=== PATIENT | male | born 1935 | race Caucasian/White ===

== ENCOUNTER 2019-10-09 17:04 | Inpatient (IN) | payer OTHER, MEDICAID ==
[~2019-10-09] VITALS: Ht 160 cm; Wt 62.1 kg
[~2019-10-09 17:04] MED LIST: ASPIR LOW81 MG; COR3 PO; LIPITOR40 MG PO; TYLENOL PO; VIAGRA
[2019-10-09 18:55] LABS: PLATELET COUNT 390 x10^3mcL (130-400)
[2019-10-09 18:57] LABS: BASOPHIL % 0 % (0-2); RED CELL DISTRIBUTION WIDTH 17.2 % (11.5-14.5)
[2019-10-09 19:35] LABS: CALCIUM 8.5 mg/dL (8.5-10.1); CARBON DIOXIDE 27.7 mmol/L (21-32); CHLORIDE SERUM 104 mmol/L (98-107); CREATININE SERUM 1.1 mg/dL (0.7-1.3); GLUCOSE SERUM 159 mg/dL (74-106); POTASSIUM SERUM 3.5 mmol/L (3.5-5.1); SODIUM SERUM 145 mmol/L (136-145)
[2019-10-09 19:41] LABS: ALBUMIN 3.8 g/dL (3.4-5.0); ALKALINE PHOSPHATASE 108 U/L (46-116); ALT/SGPT 22 U/L (16-63); AST/SGOT 25 U/L (15-37); BILIRUBIN TOTAL 0.6 mg/dL (0.20-1.00); LIPASE 103 IU/L (73-393); TOTAL PROTEIN, SERUM 7.8 g/dL (6.4-8.2)
[2019-10-09 23:12] VITALS: BP 119/66
[2019-10-09 23:49] LABS: CHOLESTEROL/HDL RATIO 3.9; MAGNESIUM 2.4 mg/dL (1.8-2.4); PHOSPHOROUS 4.1 mg/dL (2.5-4.9)
[2019-10-09 23:55] LABS: T3 TOTAL 1.07 ng/mL
[2019-10-09 23:58] LABS: FREE T4 1.41 ng/dL (0.76-1.46); FREE THYROXINE INDEX 3.9 ug/dL (1.4-4.5); T4(THYROXINE) 11.9 ug/dL (4.7-13.3)
[2019-10-10 05:42] VITALS: BP 94/47
[2019-10-10 07:10] LABS: IRON 39 ug/dL (65-170); TOTAL IRON BINDING CAPACITY 296 ug/dL (250-450)
[2019-10-10 07:17] LABS: CALCIUM 7.8 mg/dL (8.5-10.1); CARBON DIOXIDE 27.3 mmol/L (21-32); CHLORIDE SERUM 110 mmol/L (98-107); GLUCOSE SERUM 87 mg/dL (74-106); MAGNESIUM 2.3 mg/dL (1.8-2.4); POTASSIUM SERUM 3.8 mmol/L (3.5-5.1); SODIUM SERUM 146 mmol/L (136-145)
[2019-10-10 07:22] VITALS: BP 120/61
[2019-10-10 11:23] LABS: BASOPHIL % 0.6 % (0-2); PLATELET COUNT 278 x10^3mcL (130-400)
[2019-10-10 11:27] LABS: RED CELL DISTRIBUTION WIDTH 17.2 % (11.5-14.5)
[2019-10-10 13:00] VITALS: BP 123/51
[2019-10-10 16:41] VITALS: BP 116/50
[2019-10-10 19:58] VITALS: BP 140/87
[2019-10-11 05:17] VITALS: BP 146/98
[2019-10-11 06:11] LABS: PLATELET COUNT 326 x10^3mcL (130-400)
[2019-10-11 06:27] LABS: BASOPHIL % 0 % (0-2); RED CELL DISTRIBUTION WIDTH 16.8 % (11.5-14.5)
[2019-10-11 06:53] LABS: CALCIUM 8.1 mg/dL (8.5-10.1); CARBON DIOXIDE 27.6 mmol/L (21-32); CHLORIDE SERUM 108 mmol/L (98-107); CREATININE SERUM 0.9 mg/dL (0.7-1.3); GLUCOSE SERUM 100 mg/dL (74-106); MAGNESIUM 2.3 mg/dL (1.8-2.4); PHOSPHOROUS 4.4 mg/dL (2.5-4.9); POTASSIUM SERUM 3.6 mmol/L (3.5-5.1); SODIUM SERUM 145 mmol/L (136-145)
[2019-10-11 08:07] VITALS: BP 129/64
[2019-10-11 12:24] VITALS: BP 138/70
[2019-10-11 16:26] VITALS: BP 132/68
[2019-10-11 20:39] VITALS: BP 140/77
[2019-10-12 04:38] VITALS: BP 137/78
[2019-10-12 06:33] LABS: BASOPHIL % 0.1 % (0-2); PLATELET COUNT 338 x10^3mcL (130-400)
[2019-10-12 07:09] LABS: RED CELL DISTRIBUTION WIDTH 17.5 % (11.5-14.5)
[2019-10-12 07:23] LABS: CALCIUM 8.5 mg/dL (8.5-10.1); CARBON DIOXIDE 31.2 mmol/L (21-32); CHLORIDE SERUM 109 mmol/L (98-107); CREATININE SERUM 0.9 mg/dL (0.7-1.3); GLUCOSE SERUM 120 mg/dL (74-106); MAGNESIUM 2.7 mg/dL (1.8-2.4); PHOSPHOROUS 3.2 mg/dL (2.5-4.9); POTASSIUM SERUM 4.4 mmol/L (3.5-5.1); SODIUM SERUM 147 mmol/L (136-145)
[2019-10-12 08:42] VITALS: BP 139/71
[2019-10-12 12:29] VITALS: BP 121/62
[2019-10-12 20:21] VITALS: BP 123/66
[2019-10-13] VITALS (8 sets, daily range): BP systolic 106–139; BP diastolic 55–65
[2019-10-13 07:14] LABS: CALCIUM 7.8 mg/dL (8.5-10.1); CARBON DIOXIDE 31.7 mmol/L (21-32); CHLORIDE SERUM 112 mmol/L (98-107); GLUCOSE SERUM 148 mg/dL (74-106); MAGNESIUM 2.2 mg/dL (1.8-2.4); PHOSPHOROUS 2.9 mg/dL (2.5-4.9); SODIUM SERUM 150 mmol/L (136-145)
[2019-10-13 07:41] LABS: POTASSIUM SERUM 2.9 mmol/L (3.5-5.1)
[2019-10-13 08:30] LABS: BASOPHIL % 0.1 % (0-2); PLATELET COUNT 271 x10^3mcL (130-400)
[2019-10-13 08:42] LABS: RED CELL DISTRIBUTION WIDTH 17.6 % (11.5-14.5)
[2019-10-14 05:35] VITALS: BP 114/66
[2019-10-14 06:27] LABS: CALCIUM 7.9 mg/dL (8.5-10.1); CARBON DIOXIDE 24.2 mmol/L (21-32); CHLORIDE SERUM 112 mmol/L (98-107); CREATININE SERUM 1.3 mg/dL (0.7-1.3); GLUCOSE SERUM 164 mg/dL (74-106); MAGNESIUM 1.9 mg/dL (1.8-2.4); PHOSPHOROUS 1.6 mg/dL (2.5-4.9); SODIUM SERUM 147 mmol/L (136-145)
[2019-10-14 06:31] LABS: POTASSIUM SERUM 2.2 mmol/L (3.5-5.1)
[2019-10-14 08:08] VITALS: BP 93/61
[2019-10-14 08:42] LABS: PLATELET COUNT 283 x10^3mcL (130-400)
[2019-10-14 08:44] LABS: RED CELL DISTRIBUTION WIDTH 17.7 % (11.5-14.5)
[2019-10-14 12:09] VITALS: BP 117/56
[2019-10-14 13:11] LABS: BAND NEUTROPHIL 45 % (0-10); METAMYELOCTE 2 % (0-2); MONOCYTE 3 % (0-7); SEGMENTED NEUTROPHILS 47 % (37-75); rbc morphology (normal/abnorm) NORMAL (NORMAL)
[2019-10-14 15:44] VITALS: BP 90/72
[2019-10-14 16:02] LABS: CALCIUM 7.8 mg/dL (8.5-10.1); CARBON DIOXIDE 25.5 mmol/L (21-32); CHLORIDE SERUM 112 mmol/L (98-107); CREATININE SERUM 1.7 mg/dL (0.7-1.3); GLUCOSE SERUM 119 mg/dL (74-106); POTASSIUM SERUM 3.6 mmol/L (3.5-5.1); SODIUM SERUM 146 mmol/L (136-145)
[2019-10-14 18:40] VITALS: BP 99/61
[2019-10-14 19:29] VITALS: BP 104/58
[2019-10-15 00:53] LABS: UA SPECIFIC GRAVITY 1.025 (1.005-1.035); microscopic required? YES; urine erythrocyte 3+ (NEGATIVE)
[2019-10-15 05:20] VITALS: BP 116/62
[2019-10-15 06:45] LABS: CALCIUM 8.4 mg/dL (8.5-10.1); CARBON DIOXIDE 25.8 mmol/L (21-32); CHLORIDE SERUM 113 mmol/L (98-107); CREATININE SERUM 1.5 mg/dL (0.7-1.3); GLUCOSE SERUM 141 mg/dL (74-106); MAGNESIUM 2.3 mg/dL (1.8-2.4); SODIUM SERUM 148 mmol/L (136-145)
[2019-10-15 06:46] LABS: BASOPHIL % 0.2 % (0-2); PLATELET COUNT 256 x10^3mcL (130-400)
[2019-10-15 07:01] LABS: POTASSIUM SERUM 2.6 mmol/L (3.5-5.1)
[2019-10-15 07:03] LABS: RED CELL DISTRIBUTION WIDTH 17.8 % (11.5-14.5)
[2019-10-15 08:00] VITALS: BP 96/66
[2019-10-15 12:34] VITALS: BP 119/65
[2019-10-15 16:49] VITALS: BP 136/60
[2019-10-15 19:31] VITALS: BP 141/76
[2019-10-15 19:55] LABS: CARBON DIOXIDE 24.4 mmol/L (21-32); CHLORIDE SERUM 109 mmol/L (98-107); CREATININE SERUM 1.1 mg/dL (0.7-1.3); GLUCOSE SERUM 140 mg/dL (74-106); SODIUM SERUM 142 mmol/L (136-145)
[2019-10-15 19:58] LABS: POTASSIUM SERUM 2.4 mmol/L (3.5-5.1)
[2019-10-16 05:30] VITALS: BP 109/64
[2019-10-16 06:38] LABS: PLATELET COUNT 223 x10^3mcL (130-400)
[2019-10-16 06:41] LABS: RED CELL DISTRIBUTION WIDTH 17.7 % (11.5-14.5)
[2019-10-16 07:09] LABS: CARBON DIOXIDE 22.8 mmol/L (21-32); CHLORIDE SERUM 107 mmol/L (98-107); GLUCOSE SERUM 128 mg/dL (74-106); MAGNESIUM 2.1 mg/dL (1.8-2.4); PHOSPHOROUS 1.6 mg/dL (2.5-4.9); SODIUM SERUM 141 mmol/L (136-145)
[2019-10-16 07:11] LABS: POTASSIUM SERUM 2.2 mmol/L (3.5-5.1)
[2019-10-16 08:40] VITALS: BP 137/71
[2019-10-16 09:04] LABS: BAND NEUTROPHIL 38 % (0-10); BASOPHIL 0 % (0-2); MONOCYTE 5 % (0-7); SEGMENTED NEUTROPHILS 47 % (37-75)
[2019-10-16 09:05] LABS: burr cell (echinocyte) 1+; ovalocyte/elliptocyte 1+; rbc morphology (normal/abnorm) ABNORMAL (NORMAL)
[2019-10-16 09:06] LABS: PLATELET MORPHOLOGY LARGE PLATELET SEEN
[2019-10-16 12:42] VITALS: BP 156/68
[2019-10-16 15:27] LABS: CALCIUM 8.6 mg/dL (8.5-10.1); CARBON DIOXIDE 21.7 mmol/L (21-32); CHLORIDE SERUM 106 mmol/L (98-107); GLUCOSE SERUM 172 mg/dL (74-106); SODIUM SERUM 139 mmol/L (136-145)
[2019-10-16 15:33] LABS: BASOPHIL % 0.1 % (0-2); PLATELET COUNT 272 x10^3mcL (130-400)
[2019-10-16 15:35] LABS: POTASSIUM SERUM 2.8 mmol/L (3.5-5.1)
[2019-10-16 15:36] LABS: RED CELL DISTRIBUTION WIDTH 18.2 % (11.5-14.5)
[2019-10-16 16:45] VITALS: BP 121/60
[2019-10-16 21:00] VITALS: BP 140/79
[2019-10-17 06:13] VITALS: BP 103/66
[2019-10-17 07:00] LABS: CHLORIDE SERUM 113 mmol/L (98-107); CREATININE SERUM 1.8 mg/dL (0.7-1.3); GLUCOSE SERUM 182 mg/dL (74-106); SODIUM SERUM 144 mmol/L (136-145)
[2019-10-17 07:42] LABS: PLATELET COUNT 256 x10^3mcL (130-400)
[2019-10-17 07:56] LABS: RED CELL DISTRIBUTION WIDTH 17.9 % (11.5-14.5)
[2019-10-17 08:59] VITALS: BP 115/72
[2019-10-17 12:34] VITALS: BP 119/67
[2019-10-17 13:17] LABS: BAND NEUTROPHIL 13 % (0-10); BASOPHIL 0 % (0-2); MONOCYTE 15 % (0-7); SEGMENTED NEUTROPHILS 61 % (37-75)
[2019-10-17 13:18] LABS: PLATELET MORPHOLOGY PLATELETS INCREASED; rbc morphology (normal/abnorm) ABNORMAL (NORMAL)
[2019-10-17 17:19] VITALS: BP 110/62
[2019-10-17 19:45] VITALS: BP 87/40
[2019-10-17 21:19] LABS: PLATELET COUNT 208 x10^3mcL (130-400)
[2019-10-17 21:23] LABS: RED CELL DISTRIBUTION WIDTH 18.6 % (11.5-14.5)
[2019-10-17 21:40] LABS: CARBON DIOXIDE 14.9 mmol/L (21-32); CHLORIDE SERUM 112 mmol/L (98-107); CREATININE SERUM 2.9 mg/dL (0.7-1.3); GLUCOSE SERUM 139 mg/dL (74-106); POTASSIUM SERUM 3.7 mmol/L (3.5-5.1); SODIUM SERUM 145 mmol/L (136-145)
[2019-10-17 21:54] LABS: ATYPICAL LYMPH 1 %; BAND NEUTROPHIL 39 % (0-10); METAMYELOCTE 10 % (0-2); MONOCYTE 5 % (0-7); SEGMENTED NEUTROPHILS 37 % (37-75)
[2019-10-17 21:58] LABS: acanthocyte (spur cell) 2+; ovalocyte/elliptocyte 1+; rbc morphology (normal/abnorm) ABNORMAL (NORMAL)
[2019-10-17 22:00] LABS: PLATELET MORPHOLOGY PLATELETS NORMAL
[2019-10-17 23:10] VITALS: BP 89/47
[2019-10-18] VITALS (10 sets, daily range): BP systolic 86–110; BP diastolic 42–67
[2019-10-18 05:21] LABS: CALCIUM 8.7 mg/dL (8.5-10.1); CARBON DIOXIDE 17.6 mmol/L (21-32); CHLORIDE SERUM 111 mmol/L (98-107); CREATININE SERUM 3.3 mg/dL (0.7-1.3); GLUCOSE SERUM 130 mg/dL (74-106); POTASSIUM SERUM 3.5 mmol/L (3.5-5.1); SODIUM SERUM 146 mmol/L (136-145)
[2019-10-18 05:50] LABS: PLATELET COUNT 185 x10^3mcL (130-400)
[2019-10-18 05:51] LABS: RED CELL DISTRIBUTION WIDTH 18.1 % (11.5-14.5)
[2019-10-18 10:40] LABS: BAND NEUTROPHIL 20 % (0-10); MONOCYTE 18 % (0-7); SEGMENTED NEUTROPHILS 58 % (37-75)
[2019-10-18 10:41] LABS: PLATELET MORPHOLOGY PLATELETS INCREASED; rbc morphology (normal/abnorm) ABNORMAL (NORMAL)
[2019-10-18 15:12] LABS: CALCIUM 7.2 mg/dL (8.5-10.1); CARBON DIOXIDE 17.8 mmol/L (21-32); CHLORIDE SERUM 112 mmol/L (98-107); CREATININE SERUM 3.3 mg/dL (0.7-1.3); GLUCOSE SERUM 182 mg/dL (74-106); POTASSIUM SERUM 3.1 mmol/L (3.5-5.1); SODIUM SERUM 147 mmol/L (136-145)
[2019-10-18 15:55] LABS: MAGNESIUM 1.9 mg/dL (1.8-2.4); PHOSPHOROUS 5.9 mg/dL (2.5-4.9)
[2019-10-19] VITALS (18 sets, daily range): BP systolic 75–107; BP diastolic 47–64
[2019-10-19 05:45] LABS: CALCIUM 6.8 mg/dL (8.5-10.1); CARBON DIOXIDE 22.9 mmol/L (21-32); CHLORIDE SERUM 107 mmol/L (98-107); CREATININE SERUM 3.2 mg/dL (0.7-1.3); GLUCOSE SERUM 152 mg/dL (74-106); MAGNESIUM 1.9 mg/dL (1.8-2.4); PHOSPHOROUS 3.1 mg/dL (2.5-4.9); SODIUM SERUM 143 mmol/L (136-145)
[2019-10-19 05:47] LABS: POTASSIUM SERUM 2.1 mmol/L (3.5-5.1)
[2019-10-19 05:52] LABS: PLATELET COUNT 183 x10^3mcL (130-400); RED CELL DISTRIBUTION WIDTH 17.8 % (11.5-14.5)
[2019-10-19 06:41] LABS: microscopic required? YES; urine erythrocyte TRACE (NEGATIVE)
[2019-10-19 06:53] LABS: BAND NEUTROPHIL 17 % (0-10); BASOPHIL 0 % (0-2); SEGMENTED NEUTROPHILS 75 % (37-75)
[2019-10-19 06:55] LABS: rbc morphology (normal/abnorm) ABNORMAL (NORMAL); target cell (codocyte) 1+
[2019-10-19 06:56] LABS: PLATELET MORPHOLOGY GIANT PLATELET SEEN; burr cell (echinocyte) 1+; ovalocyte/elliptocyte 1+; schistocyte (helmet cell) 1+; tear drop cell (dacryocyte) 1+
[2019-10-19 07:04] LABS: CREATININE UR 9.3 mg/dL
[2019-10-19 10:36] LABS: BILIRUBIN DIRECT 0.62 mg/dL (0.0-0.2); BILIRUBIN TOTAL 0.9 mg/dL (0.20-1.00)
[2019-10-19 11:03] LABS: ALBUMIN 1.2 g/dL (3.4-5.0); TOTAL PROTEIN, SERUM 4.5 g/dL (6.4-8.2)
[2019-10-19 15:03] LABS: CALCIUM 7.1 mg/dL (8.5-10.1); CARBON DIOXIDE 20.2 mmol/L (21-32); CHLORIDE SERUM 106 mmol/L (98-107); CREATININE SERUM 2.9 mg/dL (0.7-1.3); GLUCOSE SERUM 222 mg/dL (74-106); POTASSIUM SERUM 3.2 mmol/L (3.5-5.1); SODIUM SERUM 140 mmol/L (136-145)
[2019-10-19 19:24] LABS: CARBON DIOXIDE 25.1 mmol/L (21-32); CHLORIDE SERUM 105 mmol/L (98-107); CREATININE SERUM 2.7 mg/dL (0.7-1.3); GLUCOSE SERUM 192 mg/dL (74-106); SODIUM SERUM 140 mmol/L (136-145)
[2019-10-19 19:25] LABS: POTASSIUM SERUM 2.8 mmol/L (3.5-5.1)
[2019-10-20] VITALS (17 sets, daily range): BP systolic 92–114; BP diastolic 49–92
[2019-10-20 01:08] LABS: CALCIUM 7.1 mg/dL (8.5-10.1); CARBON DIOXIDE 23.6 mmol/L (21-32); CHLORIDE SERUM 107 mmol/L (98-107); CREATININE SERUM 2.3 mg/dL (0.7-1.3); GLUCOSE SERUM 198 mg/dL (74-106); POTASSIUM SERUM 3.6 mmol/L (3.5-5.1); SODIUM SERUM 141 mmol/L (136-145)
[2019-10-20 06:11] LABS: PLATELET COUNT 180 x10^3mcL (130-400)
[2019-10-20 06:27] LABS: RED CELL DISTRIBUTION WIDTH 18.8 % (11.5-14.5)
[2019-10-20 06:29] LABS: ALKALINE PHOSPHATASE 64 U/L (46-116); ALT/SGPT 28 U/L (16-63); AST/SGOT 50 U/L (15-37); BILIRUBIN TOTAL 0.6 mg/dL (0.20-1.00); CALCIUM 6.8 mg/dL (8.5-10.1); CARBON DIOXIDE 25.3 mmol/L (21-32); CHLORIDE SERUM 105 mmol/L (98-107); CREATININE SERUM 2.2 mg/dL (0.7-1.3); GLUCOSE SERUM 231 mg/dL (74-106); MAGNESIUM 2.2 mg/dL (1.8-2.4); PHOSPHOROUS 2.1 mg/dL (2.5-4.9); POTASSIUM SERUM 3.2 mmol/L (3.5-5.1); SODIUM SERUM 140 mmol/L (136-145)
[2019-10-20 06:43] LABS: ALBUMIN 1.1 g/dL (3.4-5.0); TOTAL PROTEIN, SERUM 4.3 g/dL (6.4-8.2)
[2019-10-20 10:17] LABS: BAND NEUTROPHIL 15 % (0-10); BASOPHIL 0 % (0-2); MONOCYTE 1 % (0-7); SEGMENTED NEUTROPHILS 77 % (37-75)
[2019-10-20 10:19] LABS: burr cell (echinocyte) 1+; rbc morphology (normal/abnorm) ABNORMAL (NORMAL)
[2019-10-20 10:20] LABS: ovalocyte/elliptocyte 1+; target cell (codocyte) 1+
[2019-10-20 10:21] LABS: schistocyte (helmet cell) 1+
[2019-10-21] VITALS (19 sets, daily range): BP systolic 91–123; BP diastolic 47–66
[2019-10-21 04:31] LABS: PLATELET COUNT 193 x10^3mcL (130-400)
[2019-10-21 04:33] LABS: BASOPHIL % 0 % (0-2); RED CELL DISTRIBUTION WIDTH 17.4 % (11.5-14.5)
[2019-10-21 04:46] LABS: CALCIUM 6.8 mg/dL (8.5-10.1); CARBON DIOXIDE 29.2 mmol/L (21-32); CHLORIDE SERUM 103 mmol/L (98-107); CREATININE SERUM 1.6 mg/dL (0.7-1.3); GLUCOSE SERUM 158 mg/dL (74-106); MAGNESIUM 1.9 mg/dL (1.8-2.4); POTASSIUM SERUM 3.1 mmol/L (3.5-5.1); SODIUM SERUM 136 mmol/L (136-145)
[2019-10-22] VITALS (19 sets, daily range): BP systolic 93–113; BP diastolic 48–59
[2019-10-22 04:54] LABS: BASOPHIL % 0.2 % (0-2); PLATELET COUNT 221 x10^3mcL (130-400); RED CELL DISTRIBUTION WIDTH 17.7 % (11.5-14.5)
[2019-10-22 05:13] LABS: CALCIUM 7.4 mg/dL (8.5-10.1); CARBON DIOXIDE 27.6 mmol/L (21-32); CHLORIDE SERUM 104 mmol/L (98-107); CREATININE SERUM 1.4 mg/dL (0.7-1.3); GLUCOSE SERUM 137 mg/dL (74-106); MAGNESIUM 2.1 mg/dL (1.8-2.4); SODIUM SERUM 135 mmol/L (136-145)
[2019-10-23] VITALS (18 sets, daily range): BP systolic 86–125; BP diastolic 47–64
[2019-10-23 05:10] LABS: BASOPHIL % 0.1 % (0-2); PLATELET COUNT 238 x10^3mcL (130-400)
[2019-10-23 05:23] LABS: RED CELL DISTRIBUTION WIDTH 17.2 % (11.5-14.5)
[2019-10-23 05:32] LABS: CALCIUM 7.4 mg/dL (8.5-10.1); CARBON DIOXIDE 27.4 mmol/L (21-32); CHLORIDE SERUM 107 mmol/L (98-107); CREATININE SERUM 1.3 mg/dL (0.7-1.3); GLUCOSE SERUM 131 mg/dL (74-106); SODIUM SERUM 138 mmol/L (136-145)
[2019-10-24] VITALS (16 sets, daily range): BP systolic 85–122; BP diastolic 49–68
[2019-10-24 05:48] LABS: BASOPHIL % 0.4 % (0-2); PLATELET COUNT 279 x10^3mcL (130-400)
[2019-10-24 05:51] LABS: CALCIUM 7.1 mg/dL (8.5-10.1); CARBON DIOXIDE 26.5 mmol/L (21-32); CHLORIDE SERUM 108 mmol/L (98-107); CREATININE SERUM 1.2 mg/dL (0.7-1.3); GLUCOSE SERUM 120 mg/dL (74-106); MAGNESIUM 1.9 mg/dL (1.8-2.4); PHOSPHOROUS 3.7 mg/dL (2.5-4.9); POTASSIUM SERUM 4.2 mmol/L (3.5-5.1); SODIUM SERUM 142 mmol/L (136-145)
[2019-10-25] VITALS (17 sets, daily range): BP systolic 89–120; BP diastolic 46–99
[2019-10-25 05:44] LABS: BASOPHIL % 0.8 % (0-2); PLATELET COUNT 341 x10^3mcL (130-400)
[2019-10-25 05:48] LABS: CALCIUM 6.9 mg/dL (8.5-10.1); CARBON DIOXIDE 24.6 mmol/L (21-32); CHLORIDE SERUM 108 mmol/L (98-107); CREATININE SERUM 1.4 mg/dL (0.7-1.3); GLUCOSE SERUM 138 mg/dL (74-106); POTASSIUM SERUM 4.1 mmol/L (3.5-5.1); SODIUM SERUM 141 mmol/L (136-145)
[2019-10-26] VITALS (18 sets, daily range): BP systolic 86–116; BP diastolic 45–69
[2019-10-26 05:26] LABS: BASOPHIL % 0.4 % (0-2); PLATELET COUNT 379 x10^3mcL (130-400); RED CELL DISTRIBUTION WIDTH 18.6 % (11.5-14.5)
[2019-10-26 05:38] LABS: CALCIUM 6.7 mg/dL (8.5-10.1); CARBON DIOXIDE 24.4 mmol/L (21-32); CHLORIDE SERUM 109 mmol/L (98-107); CREATININE SERUM 1.3 mg/dL (0.7-1.3); GLUCOSE SERUM 116 mg/dL (74-106); POTASSIUM SERUM 4.1 mmol/L (3.5-5.1); SODIUM SERUM 141 mmol/L (136-145)
[2019-10-27] VITALS (18 sets, daily range): BP systolic 93–116; BP diastolic 45–68
[2019-10-27 05:20] LABS: BASOPHIL % 0.3 % (0-2); PLATELET COUNT 398 x10^3mcL (130-400)
[2019-10-27 05:30] LABS: RED CELL DISTRIBUTION WIDTH 18.6 % (11.5-14.5)
[2019-10-27 05:32] LABS: ALKALINE PHOSPHATASE 151 U/L (46-116); ALT/SGPT 36 U/L (16-63); AST/SGOT 51 U/L (15-37); BILIRUBIN TOTAL 0.64 mg/dL (0.20-1.00); CARBON DIOXIDE 24.3 mmol/L (21-32); CHLORIDE SERUM 111 mmol/L (98-107); CREATININE SERUM 1.3 mg/dL (0.7-1.3); GLUCOSE SERUM 124 mg/dL (74-106); POTASSIUM SERUM 4.4 mmol/L (3.5-5.1); SODIUM SERUM 140 mmol/L (136-145)
[2019-10-27 05:33] LABS: ALBUMIN 1.4 g/dL (3.4-5.0)
[2019-10-28] VITALS (13 sets, daily range): BP systolic 96–107; BP diastolic 46–57
[2019-10-28 07:10] LABS: CALCIUM 6.9 mg/dL (8.5-10.1); CARBON DIOXIDE 22.3 mmol/L (21-32); CHLORIDE SERUM 111 mmol/L (98-107); CREATININE SERUM 1.2 mg/dL (0.7-1.3); GLUCOSE SERUM 112 mg/dL (74-106); POTASSIUM SERUM 3.9 mmol/L (3.5-5.1); SODIUM SERUM 144 mmol/L (136-145)
[2019-10-28 07:17] LABS: BASOPHIL % 0.6 % (0-2); PLATELET COUNT 350 x10^3mcL (130-400)
[2019-10-28 07:19] LABS: RED CELL DISTRIBUTION WIDTH 18.2 % (11.5-14.5)
[2019-10-29] VITALS (7 sets, daily range): BP systolic 94–119; BP diastolic 53–65; Ht 160 cm; Wt 62.1 kg
[2019-10-29 05:51] LABS: BASOPHIL % 0.8 % (0-2); PLATELET COUNT 371 x10^3mcL (130-400); RED CELL DISTRIBUTION WIDTH 17.1 % (11.5-14.5)
[2019-10-29 06:01] LABS: CALCIUM 6.8 mg/dL (8.5-10.1); CHLORIDE SERUM 113 mmol/L (98-107); CREATININE SERUM 1.1 mg/dL (0.7-1.3); GLUCOSE SERUM 83 mg/dL (74-106); POTASSIUM SERUM 3.7 mmol/L (3.5-5.1); SODIUM SERUM 145 mmol/L (136-145)
[2019-10-30] VITALS: BP 107/54
[2019-10-30 04:00] VITALS: BP 124/64
[2019-10-30 08:00] VITALS: BP 118/56
[2019-10-30 10:23] VITALS: BP 122/57
[2019-10-30 16:55] VITALS: BP 116/58
[2019-10-30 21:28] VITALS: BP 114/60
[2019-10-31 06:00] VITALS: BP 105/52
[2019-10-31 09:30] VITALS: BP 102/51
[2019-10-31 12:47] VITALS: BP 102/51
[2019-10-31 13:00] VITALS: BP 98/48
[2019-10-31 17:20] VITALS: BP 115/53
[2019-10-31 20:58] VITALS: BP 112/55
[2019-11-01 05:20] VITALS: BP 110/55
[2019-11-01 05:46] LABS: BASOPHIL % 0.8 % (0-2); PLATELET COUNT 342 x10^3mcL (130-400)
[2019-11-01 05:52] LABS: RED CELL DISTRIBUTION WIDTH 17.5 % (11.5-14.5)
[2019-11-01 06:38] LABS: CARBON DIOXIDE 27.9 mmol/L (21-32); CHLORIDE SERUM 109 mmol/L (98-107); CREATININE SERUM 1.2 mg/dL (0.7-1.3); GLUCOSE SERUM 82 mg/dL (74-106); POTASSIUM SERUM 4.3 mmol/L (3.5-5.1); SODIUM SERUM 142 mmol/L (136-145)
[2019-11-01 08:20] VITALS: BP 126/58
[2019-11-01 13:05] VITALS: BP 102/54
[2019-11-01 15:53] VITALS: BP 123/62
[2019-11-01 20:45] VITALS: BP 120/63
[2019-11-02 05:21] VITALS: BP 106/51
[2019-11-02 06:37] LABS: BASOPHIL % 0.7 % (0-2); PLATELET COUNT 344 x10^3mcL (130-400)
[2019-11-02 06:48] LABS: RED CELL DISTRIBUTION WIDTH 17.7 % (11.5-14.5)
[2019-11-02 07:00] LABS: CALCIUM 6.9 mg/dL (8.5-10.1); CARBON DIOXIDE 26.4 mmol/L (21-32); CHLORIDE SERUM 106 mmol/L (98-107); GLUCOSE SERUM 89 mg/dL (74-106); POTASSIUM SERUM 3.6 mmol/L (3.5-5.1); SODIUM SERUM 139 mmol/L (136-145)
[2019-11-02 07:46] VITALS: BP 122/64
[2019-11-02] MEDS ORDERED: BACDS PO (10:41)
[2019-11-02] MEDS ORDERED: PENICILLIN V P250 MG PO (10:43)
[2019-11-02 11:47] VITALS: BP 113/71
[2019-11-02 15:31] VITALS: BP 133/61
[2019-11-02 20:24] VITALS: BP 109/58
[2019-11-03 05:34] VITALS: BP 112/60
[2019-11-03 08:15] VITALS: BP 119/60
[2019-11-03 11:00] VITALS: BP 113/57
[2019-11-03 15:43] VITALS: BP 122/63
[2019-11-03 20:25] VITALS: BP 110/54
[2019-11-04 05:10] VITALS: BP 112/57
[2019-11-04 08:51] LABS: BASOPHIL % 0.7 % (0-2)
[2019-11-04 08:52] VITALS: BP 116/54
[2019-11-04 08:55] LABS: PLATELET COUNT 435 x10^3mcL (130-400); RED CELL DISTRIBUTION WIDTH 18.6 % (11.5-14.5)
[2019-11-04 12:03] VITALS: BP 102/52
[2019-11-04 17:13] VITALS: BP 115/62
[2019-11-04 20:48] VITALS: BP 124/62
[2019-11-05 05:10] VITALS: BP 122/63
[2019-11-05 08:34] VITALS: BP 104/62
[2019-11-05 16:06] VITALS: BP 104/62
[2019-11-05 16:29] VITALS: BP 115/66
[2019-11-05 21:56] VITALS: BP 114/67
[2019-11-06 05:25] VITALS: BP 129/61
[2019-11-06 09:05] VITALS: BP 107/57
[2019-11-06 17:13] VITALS: BP 115/62
[2019-11-06 19:05] VITALS: BP 115/62
== END 2019-11-06 19:56 | DRG 329 ==
LOC: ED 17:04 → MU 22:06 → DU 10-15 17:11 → IC 10-17 20:07 → DU 10-30 10:05 → MU 10-31 16:05
PROVIDERS: Emergency Medicine; Family Medicine; Internal Medicine; Internal Medicine Gastroenterology; Surgery; ADMIT Student in an Organized Health Care Education/Training Program
PROC: 0DB68ZX Excision of Stomach, Via Natural or Artificial Opening Endoscopic, Diagnostic (ICD-10-PCS; 2019-10-11 08:00)
PROC: 0DBP8ZX Excision of Rectum, Via Natural or Artificial Opening Endoscopic, Diagnostic (ICD-10-PCS; 2019-10-11 08:00)
PROC: 0D1M4Z4 Bypass Descending Colon to Cutaneous, Percutaneous Endoscopic Approach (ICD-10-PCS; principal; 2019-10-12 14:45)
PROC: 02HV33Z Insertion of Infusion Device into Superior Vena Cava, Percutaneous Approach (ICD-10-PCS; 2019-10-18)
PROC: 0BH17EZ Insertion of Endotracheal Airway into Trachea, Via Natural or Artificial Opening (ICD-10-PCS; 2019-10-18)
PROC: 5A1955Z Respiratory Ventilation, Greater than 96 Consecutive Hours (ICD-10-PCS; 2019-10-18)
PROC: 30233N1 Transfusion of Nonautologous Red Blood Cells into Peripheral Vein, Percutaneous Approach (ICD-10-PCS; 2019-10-21)
PROC: 0W9F3ZX Drainage of Abdominal Wall, Percutaneous Approach, Diagnostic (ICD-10-PCS; 2019-10-26)
PROC: 30233N1 Transfusion of Nonautologous Red Blood Cells into Peripheral Vein, Percutaneous Approach (ICD-10-PCS; 2019-10-28)
DX: C19 Malignant neoplasm of rectosigmoid junction (principal); N17.0 Acute kidney failure with tubular necrosis; E43 Unspecified severe protein-calorie malnutrition; A41.9 Sepsis, unspecified organism; R65.21 Severe sepsis with septic shock; J69.0 Pneumonitis due to inhalation of food and vomit; J96.01 Acute respiratory failure with hypoxia; K55.059 Acute (reversible) ischemia of intestine, part and extent unspecified; K56.609 Unspecified intestinal obstruction, unspecified as to partial versus complete obstruction; E87.0 Hyperosmolality and hypernatremia; K94.02 Colostomy infection; T81.43XA Infection following a procedure, organ and space surgical site, initial encounter; E87.2 Acidosis; E87.3 Alkalosis; Z16.12 Extended spectrum beta lactamase (ESBL) resistance; Z16.24 Resistance to multiple antibiotics; B96.20 Unspecified Escherichia coli [E. coli] as the cause of diseases classified elsewhere; B95.2 Enterococcus as the cause of diseases classified elsewhere; E86.0 Dehydration; E86.1 Hypovolemia; D63.0 Anemia in neoplastic disease; N28.1 Cyst of kidney, acquired; K44.9 Diaphragmatic hernia without obstruction or gangrene; K57.30 Diverticulosis of large intestine without perforation or abscess without bleeding; I48.0 Paroxysmal atrial fibrillation; I25.10 Atherosclerotic heart disease of native coronary artery without angina pectoris; I25.5 Ischemic cardiomyopathy; I08.1 Rheumatic disorders of both mitral and tricuspid valves; R54 Age-related physical debility; N18.3 Chronic kidney disease, stage 3 (moderate); N40.0 Benign prostatic hyperplasia without lower urinary tract symptoms; Z68.21 Body mass index [BMI] 21.0-21.9, adult; Z95.1 Presence of aortocoronary bypass graft; Z79.82 Long term (current) use of aspirin; Z79.1 Long term (current) use of non-steroidal anti-inflammatories (NSAID); Y95 Nosocomial condition; Y83.3 Surgical operation with formation of external stoma as the cause of abnormal reaction of the patient, or of later complication, without mention of misadventure at the time of the procedure; Y92.230 Patient room in hospital as the place of occurrence of the external cause
CPT/HCPCS: 31500; 36556; 36600; 43235; 45330; 82962; 83880; 84439; 85378; 87804; 92526-GN; 92610-GN; 94150; 97110-GP; 97116-GP; 97530-GP; A4371; A4628; A9577; C1729; C9113; G0378; J0282; J0290; J0330; J0690; J1200; J1450; J1610; J1642; J1815; J1885; J1940; J1956; J2001; J2060; J2185 ×2; J2250; J2310; J2405; J2543; J2704; J2710; J2765; J2916; J3010; J3370; J3475; J3480; J3490; J7030; J7040; J7042; J7050; J7120; J7131; J8597; P9016; P9047; Q0092; Q0163; Q9966; Q9967